=== PATIENT | female | born 1975 | race Caucasian/White ===

== ENCOUNTER 2024-03-29 08:29 | Outpatient (AMB) | payer OTHER, SELFPAY ==
--- NOTE | 2024-03-29 08:46 | MHC.PC.OV ---
Intake Visit Reasons: new pt/ stitches removed 1 or 2 left Intake Note: patient here for new patient visit. Coding
--- NOTE | 2024-03-29 08:51 | AM.OFFWIN_ITS ---
Intake Vital Signs 03/29/24 08:52 Height 5 ft 3 in Weight 102 lb 4 oz BMI 18.1 BP 114/64 Blood Pressure Location Rt brachial Position Sitting Respiration 16 Pulse 91 Pulse Source Pulse Oximeter Temp 98.2 F Temp Source Oral Pulse Oximetry (%) 98 Oxygen Delivery Method Room Air Intake Visit Reasons: new pt/ stitches removed 1 or 2 left Patient Tobacco Use Status: Current everyday Tobacco user [employer] Required: No Is last menstrual period known: Yes Last menstrual period: 02/02/24 Post menopausal: No Patient : No Allergies No Known Allergies Allergy (Verified 03/29/24 08:50) Do you need a note to return to daycare/school/sports/work: No HPI HPI Comments History of Present Illness Details 48-year-old female here today for suture removal. Reports that she had sutures placed about 2 weeks ago at a hospital in [place], [place] She returned to have them removed however there was to that they were unable to take out. The lac as above her right eyebrow. She reports that she is up-to-date on her tetanus shot. Exam: awake alert NAD below right brow is a lac with edges well approx, scabbing in the center with 2 interrupted sutures that were easily removed pt tolerated well area was cleansed before & after left SKYE Plan: avoid sun exposure do not pick scab PFSH Social History Patient Tobacco Use Status: Current everyday Tobacco user Patient : No Female Reproductive History Menstrual Date of last menstrual period: 02/02/24 Physical Exam Vital Signs: Last Vital Signs Temp 98.2 F 03/29/24 08:52 Pulse 91 03/29/24 08:52 Resp 16 03/29/24 08:52 BP 114/64 03/29/24 08:52 Pulse Ox 98 03/29/24 08:52 Oxygen Delivery Method Room Air 03/29/24 08:52 BMI result Body Mass Index 18.1 Assessment & Plan Assessment & Plan (1) Visit for suture removal: Code(s): Z48.02 - Encounter for removal of sutures Plan . Coding Level of Care Code Est Pt Level 3 (94366) Diagnoses Visit for suture removal Z48.02
[2024-03-29 08:52] VITALS: BP 114/64; PULSE 91; RESP 16; TEMP 36.8; O2SAT 98; BMI 18.1
== END 2024-03-29 09:20 | disposition home or self-care (01) ==
PROVIDERS: Visit Provider Nurse Practitioner Family
DX: Z48.02 Encounter for removal of sutures (principal)
CPT/HCPCS: 99213